=== PATIENT | male | born 1975 | race Caucasian/White ===

== ENCOUNTER 2021-03-08 12:40 | Emergency (ER) | payer OTHER ==
[~2021-03-08] VITALS: Ht 193 cm; Wt 72.6 kg
[2021-03-08] MEDS ORDERED: DILTIAZEM ER120 M2 PO (12:50)
[2021-03-08] MEDS ORDERED: EFFEXOR XR75 MG PO (12:50)
[2021-03-08] MEDS ORDERED: ECOTRIN81 MG PO (12:50)
[2021-03-08] MEDS ORDERED: AIRDUO RESPICL1 EACH IH (12:51)
[2021-03-08] MEDS ORDERED: L-METHYLFOLATE15 M1 PO (12:51)
[2021-03-08] MEDS ORDERED: CLARITIN10 M1 PO (12:52)
[2021-03-08] MEDS ORDERED: LAVENDER FRAGRAN1 ML MC (12:52)
[2021-03-08] MEDS ORDERED: PRILOSEC OTC20 MG PO (12:53)
[2021-03-08] MEDS ORDERED: PHENAZOPYRIDIN200 MG PO (12:53)
[2021-03-08] MEDS ORDERED: CRESTOR20 MG PO (12:54)
[2021-03-08] MEDS ORDERED: TAMS0.4C PO (12:54)
== END 2021-03-08 16:43 | disposition home or self-care (01) ==
LOC: ER 12:40
DX: R07.89 Other chest pain (principal)